=== PATIENT | female | born 1975 | race Caucasian/White ===

== ENCOUNTER 2021-09-17 18:14 | Emergency (ER) | payer BC ==
[~2021-09-17] VITALS: Ht 162.6 cm; Wt 103.9 kg
[2021-09-17 18:15] VITALS: BP 179/79
[2021-09-17] MEDS ORDERED: SERT-141 PO (18:59)
[2021-09-17] MEDS ORDERED: CETI10CA2 PO (18:59)
[2021-09-17] MEDS ORDERED: LABE100T4 PO (18:59)
[2021-09-17] MEDS ORDERED: ROPI5TAB3 PO (18:59)
[2021-09-17] MEDS ORDERED: DOXY-350 PO (18:59)
[2021-09-17 21:45] LABS: BASO # 0.1 10^3/uL (0.0-0.2); BASO % 0.5 % (0.0-1.0); EOS # 0.2 10^3/uL (0.0-0.5); HEMOGLOBIN 9.7 g/dl (12.0-15.5); LYMPH # 2.1 10^3/uL (1.5-5.0); MEAN CORPUSCULAR HEMOGLOBIN 19.7 pg (27.0-33.0); MEAN CORPUSCULAR HGB CONC 29.4 g/dl (32.0-36.5); MEAN CORPUSCULAR VOLUME 67.1 fl (80.0-96.0); MONO # 0.4 10^3/uL (0.0-0.8); MONO % 4.1 % (2.0-8.0); NEUTROPHILS # 7.8 10^3/uL (1.5-8.5); NEUTROPHILS % 72.7 % (36.0-66.0); PLATELET COUNT, AUTOMATED 379 10^3/uL (150-450); RED BLOOD COUNT 4.92 10^6/uL (4.00-5.40); WHITE BLOOD COUNT 10.7 10^3/uL (4.0-10.0)
[2021-09-17 22:07] LABS: ALBUMIN 3.5 GM/DL (3.2-5.2); BILIRUBIN,DIRECT 0.1 MG/DL (0.0-0.2); BILIRUBIN,TOTAL 0.2 MG/DL (0.2-1.0); C REACTIVE PROTEIN QUANTITATIV 1.89 MG/DL (0.00-0.30); TOTAL PROTEIN 7.5 GM/DL (6.4-8.2)
[2021-09-17 22:14] LABS: ERYTHROCYTE SEDIMENTATION RATE 60 mm/hr (0-20)
[2021-09-17] MEDS ORDERED: DOXYCYCLINE HYCLATE 100 MG in D5W MINI-BAG PLUS 100 ML IV ONE (23:15)
[2021-09-18] MEDS ORDERED: CALA1LOT9 EX (00:36)
[2021-09-18] MEDS ORDERED: DOXY-443 PO (00:36)
[2021-09-18] MEDS ORDERED: FERR325T3 PO (01:35)
== END 2021-09-18 01:17 | disposition home or self-care (01) ==
LOC: M ED 18:14
DX: L03.114 Cellulitis of left upper limb (principal); L25.9 Unspecified contact dermatitis, unspecified cause; D64.9 Anemia, unspecified; I10 Essential (primary) hypertension; K58.9 Irritable bowel syndrome, unspecified; Z79.899 Other long term (current) drug therapy; Z88.1 Allergy status to other antibiotic agents; Z88.2 Allergy status to sulfonamides; Z88.8 Allergy status to other drugs, medicaments and biological substances

== ENCOUNTER → 2021-12-16 | Outpatient (REF) | payer BC ==
[~2021-12-16] MED LIST: CALA1LOT9 EX; CETI10CA2 PO; DOXY-350 PO; DOXY-443 PO; FERR325T3 PO; LABE100T6 PO; ROPI5TAB3 PO; SERT-141 PO
== END ==
LOC: M PLALAB 13:56
PROVIDERS: ATTEND Nurse Practitioner Family
DX: Z12.4 Encounter for screening for malignant neoplasm of cervix (principal); R87.618 Other abnormal cytological findings on specimens from cervix uteri

== ENCOUNTER → 2022-03-12 | Outpatient (REF) | payer BC ==
[~2022-03-12] MED LIST changes: -DOXY-350 PO; +DOXY-444 PO
== END ==
LOC: M PLALAB 09:21
PROVIDERS: ATTEND Nurse Practitioner Family
DX: N39.0 Urinary tract infection, site not specified (principal)

== ENCOUNTER → 2022-03-13 | Day surgery (SDC) | payer BC ==
[~2022-03-13] VITALS: Ht 152.4 cm; Wt 109.7 kg
[~2022-03-13] MED LIST changes: +HYDROMORPHONE HCL 0.5 MG/ 0.5 ML SYRINGE IV PRN; +ISOVUE-300 61% 50ML VIAL As Ordered ONE; +KETOROLAC 30 MG/ML 1ML VIAL IV ONE; +LIDOCAINE 2% 100MG/5ML SDV (FOR ANES.) As Ordered ONE; +LR 1,000 ML IV SCH; +METOCLOPRAMIDE INJ 10MG/2ML VIAL As Ordered ONE; +MIDAZOLAM INJ 2MG/2ML VIAL As Ordered ONE; +NS 1,000 ML IV SCH; +ONDANSETRON 4MG 2ML VIAL As Ordered ONE; +ONDANSETRON 4MG 2ML VIAL IV ONE; +ONDANSETRON 4MG 2ML VIAL IV PRN; +ROCURONIUM BROMIDE 50MG/5ML VIAL As Ordered ONE; +SUGAMMADEX SODIUM 500 MG/5 ML VIAL (BRIDION) As Ordered ONE; +TAMSULOSIN 0.4 MG CAP PO ONE; +cefTRIAXone SOD 1GM VIAL As Ordered ONE; +fentaNYL 100 MCG/2 ML INJECTION As Ordered ONE; +oxyCODONE 5MG TAB PO PRN; +propofoL 200 MG/20 ML VIAL As Ordered ONE
[2022-03-13 10:26] LABS: URINE PREG TEST NEGATIVE (NEGATIVE)
[2022-03-13 11:35] LABS: BASO % 0.3 % (0.0-1.0); EOS # 0.1 10^3/uL (0.0-0.5); EOS % 1.4 % (0.0-3.0); HEMATOCRIT 38.5 % (36.0-47.0); HEMOGLOBIN 11.8 g/dl (12.0-15.5); LYMPH # 2.2 10^3/uL (1.5-5.0); LYMPH % 24.1 % (24.0-44.0); MEAN CORPUSCULAR HEMOGLOBIN 22.6 pg (27.0-33.0); MEAN CORPUSCULAR HGB CONC 30.6 g/dl (32.0-36.5); MEAN CORPUSCULAR VOLUME 73.8 fl (80.0-96.0); MONO # 0.6 10^3/uL (0.0-0.8); NEUTROPHILS # 6.3 10^3/uL (1.5-8.5); NEUTROPHILS % 67.8 % (36.0-66.0); PLATELET COUNT, AUTOMATED 305 10^3/uL (150-450); RED BLOOD COUNT 5.22 10^6/uL (4.00-5.40); WHITE BLOOD COUNT 9.3 10^3/uL (4.0-10.0)
[2022-03-13 12:02] LABS: LIPASE 33 U/L (12-53)
[2022-03-13 12:03] LABS: ALBUMIN 3.5 G/DL (3.2-5.2); ALKALINE PHOSPHATASE 67 U/L (46-116); ALT/SGPT 27 U/L (7.0-40); AST/SGOT 24 U/L (<34); BILIRUBIN,DIRECT < 0.1 MG/DL (<0.4); BILIRUBIN,TOTAL 0.3 MG/DL (0.3-1.2); BLOOD UREA NITROGEN 13 MG/DL (9-23); CALCIUM LEVEL 9.6 MG/DL (8.5-10.1); CARBON DIOXIDE LEVEL 26 MMOL/L (20-31); CHLORIDE LEVEL 105 MMOL/L (98-107); CREATININE FOR GFR 0.63 MG/DL (0.55-1.30); GLOMERULAR FILTRATION RATE > 60.0 (>58); GLUCOSE, FASTING 95 MG/DL (60-100); POTASSIUM SERUM 3.9 MMOL/L (3.5-5.1); SODIUM LEVEL 139 MMOL/L (136-145); TOTAL PROTEIN 7.3 G/DL (5.7-8.2)
[2022-03-13 12:38] LABS: RSV AMPLIFICATION NEGATIVE (NEGATIVE)
[2022-03-13 13:26] LABS: HCG, SERUM QUALITATIVE NEGATIVE (NEGATIVE)
[2022-03-13 17:53] VITALS: BP_DIAS 55
[2022-03-13 18:08] VITALS: BP_SYST 105
== END | disposition home or self-care (01) ==
LOC: M ED 10:03 → M SDC 10:04
PROVIDERS: ATTEND Urology
DX: N20.1 Calculus of ureter (principal); N13.30 Unspecified hydronephrosis; K42.9 Umbilical hernia without obstruction or gangrene; I10 Essential (primary) hypertension; K58.9 Irritable bowel syndrome, unspecified; Z97.5 Presence of (intrauterine) contraceptive device; F32.A Depression, unspecified; Z88.2 Allergy status to sulfonamides; Z88.8 Allergy status to other drugs, medicaments and biological substances; Z79.899 Other long term (current) drug therapy; Z79.2 Long term (current) use of antibiotics; Z87.442 Personal history of urinary calculi
CPT/HCPCS: 52332; 74176; 74420; 80048; 80076; 81000; 81015; 83690; 84702; 84703; 85025; 87086; 87631; 96374; 96375; 96376; 99284; C2617; J1100; J2405

== ENCOUNTER → 2022-03-29 | Outpatient (CLI) | payer BC ==
[~2022-03-29] MED LIST changes: +AMLO1TAB25 PO; +BISO5TAB14 PO; +FLOM0.4C39 PO; +HYDR12CA PO; -HYDROMORPHONE HCL 0.5 MG/ 0.5 ML SYRINGE IV PRN; -ISOVUE-300 61% 50ML VIAL As Ordered ONE; +KETO10TAB PO; -KETOROLAC 30 MG/ML 1ML VIAL IV ONE; -LIDOCAINE 2% 100MG/5ML SDV (FOR ANES.) As Ordered ONE; +LOSA100T45 PO; -LR 1,000 ML IV SCH; -METOCLOPRAMIDE INJ 10MG/2ML VIAL As Ordered ONE; -MIDAZOLAM INJ 2MG/2ML VIAL As Ordered ONE; -NS 1,000 ML IV SCH; +ONDA4TAB6 PO; -ONDANSETRON 4MG 2ML VIAL As Ordered ONE; -ONDANSETRON 4MG 2ML VIAL IV ONE; -ONDANSETRON 4MG 2ML VIAL IV PRN; +OXYB5TAB10 PO; -ROCURONIUM BROMIDE 50MG/5ML VIAL As Ordered ONE; +SERT50TA29 PO; -SUGAMMADEX SODIUM 500 MG/5 ML VIAL (BRIDION) As Ordered ONE; -TAMSULOSIN 0.4 MG CAP PO ONE; -cefTRIAXone SOD 1GM VIAL As Ordered ONE; -fentaNYL 100 MCG/2 ML INJECTION As Ordered ONE; -oxyCODONE 5MG TAB PO PRN; -propofoL 200 MG/20 ML VIAL As Ordered ONE
== END ==
LOC: M LABSMTC 09:13
PROVIDERS: ATTEND Anesthesiology
DX: Z01.812 Encounter for preprocedural laboratory examination (principal); Z11.52 Encounter for screening for COVID-19

== ENCOUNTER → 2022-03-29 | Outpatient (CLI) | payer BC | LOC: M RAD 09:41 | PROVIDERS: ATTEND Physician Assistant | DX: Z01.818 Encounter for other preprocedural examination (principal); Z79.899 Other long term (current) drug therapy ==

== ENCOUNTER 2022-03-31 07:19 | Day surgery (SDC) | payer BC ==
[~2022-03-31] VITALS: Ht 152.4 cm; Wt 108.9 kg
[~2022-03-31 07:19] MED LIST changes: +ISOVUE-M 300 61% 15ML VIAL As Ordered ONE; +ceFAZolin SOD 2 GM in IV 1 EA IV ONE
[2022-03-31] MEDS ORDERED: propofoL 200 MG/20 ML VIAL As Ordered ONE (08:08)
[2022-03-31] MEDS ORDERED: ONDANSETRON 4MG 2ML VIAL As Ordered ONE (08:08)
[2022-03-31] MEDS ORDERED: LIDOCAINE 2% 100MG/5ML SDV (FOR ANES.) As Ordered ONE (08:08)
[2022-03-31] MEDS ORDERED: MIDAZOLAM INJ 2MG/2ML VIAL As Ordered ONE (08:12)
[2022-03-31] MEDS ORDERED: fentaNYL 100 MCG/2 ML INJECTION As Ordered ONE (08:13)
[2022-03-31] MEDS ORDERED: LR 1,000 ML IV SCH ×2 (08:35→10:05)
[2022-03-31] MEDS ORDERED: ACETAMINOPHEN 1000MG 100ML IV BAG As Ordered ONE (09:23)
[2022-03-31] MEDS ORDERED: ePHEDrine SULFATE 25 MG/5 ML(5MG/ML) SYRINGE As Ordered ONE (09:26)
[2022-03-31] MEDS ORDERED: ONDANSETRON 4MG 2ML VIAL IV PRN (10:05)
[2022-03-31] MEDS ORDERED: oxyCODONE 5MG TAB PO PRN (10:05)
[2022-03-31] MEDS ORDERED: fentaNYL 100 MCG/2 ML INJECTION IV PRN (10:05)
[2022-03-31] MEDS ORDERED: PERCOCET 5MG/325MG TAB PO PRN (10:35)
[2022-03-31] MEDS ORDERED: oxyBUTYnin 5 MG TAB PO PRN (10:35)
[2022-03-31] MEDS ORDERED: KETOROLAC 30 MG/ML 1ML VIAL IV ONE ×2 (11:10→11:15)
[2022-03-31 12:25] VITALS: BP 121/60
[2022-04-03 14:08] LABS: CA Oxalate Dihy 60 % (.); Ca Ox Monohydrate 35 % (.); Size 2x6 mm (.)
== END 2022-03-31 12:55 | disposition home or self-care (01) ==
LOC: M SDC 07:19
PROVIDERS: ATTEND Urology
DX: N20.1 Calculus of ureter (principal); N13.30 Unspecified hydronephrosis; I10 Essential (primary) hypertension; E78.00 Pure hypercholesterolemia, unspecified; F32.A Depression, unspecified; Z87.442 Personal history of urinary calculi; Z79.899 Other long term (current) drug therapy; Z88.8 Allergy status to other drugs, medicaments and biological substances; Z88.2 Allergy status to sulfonamides
CPT/HCPCS: 52332; 52352; 74420; 82365; C1769; C1894; C2617; J0131; J0690; J1885; J2250; J2405; J3010

== ENCOUNTER → 2023-01-04 | Outpatient (CLI) | payer BC ==
[~2023-01-04] MED LIST changes: -ISOVUE-M 300 61% 15ML VIAL As Ordered ONE; -LOSA100T45 PO; +LOSA100T46 PO; -OXYB5TAB10 PO; +OXYB5TAB11 PO; +ROPI5TAB23 PO; -ROPI5TAB3 PO; -ceFAZolin SOD 2 GM in IV 1 EA IV ONE
== END ==
LOC: M RAD 08:10
PROVIDERS: ATTEND Urology
DX: N20.0 Calculus of kidney (principal); R93.41 Abnormal radiologic findings on diagnostic imaging of renal pelvis, ureter, or bladder

== ENCOUNTER → 2023-01-10 | Outpatient (CLI) | payer BC | LOC: M PLAIMG 13:23 | PROVIDERS: ATTEND Physician Assistant | DX: N20.0 Calculus of kidney (principal) ==

== ENCOUNTER → 2024-10-02 | Outpatient (REF) | payer BC ==
[~2024-10-02] MED LIST changes: +DOXY-440 PO; +DOXY-441 PO; -DOXY-443 PO; -DOXY-444 PO; -FLOM0.4C39 PO; +HYDR12.510 PO; -HYDR12CA PO; +ONDA-282 PO; -ONDA4TAB6 PO; -OXYB5TAB11 PO; +OXYB5TAB14 PO; +TAMS-18 PO
[2024-10-04 14:22] LABS: HPV APTIMA Not Detected (Not Detected)
== END ==
LOC: M SFHCWAGY 16:49
PROVIDERS: ATTEND Advanced Practice Midwife
DX: Z12.4 Encounter for screening for malignant neoplasm of cervix (principal)

== ENCOUNTER → 2024-11-05 | Outpatient (CLI) | payer BC ==
[2024-11-05 18:12] LABS: APPEARANCE, URINE CLEAR (CLEAR); BACTERIA, URINE AUTO NEGATIVE (NEGATIVE); BILIRUBIN, URINE AUTO NEGATIVE (NEGATIVE); BLOOD, URINE BLOOD 2+ (NEGATIVE); GLUCOSE, URINE (UA) AUTO NEGATIVE (NEGATIVE); KETONE, URINE AUTO NEGATIVE (NEGATIVE); LEUKOCYTE ESTERASE, URINE AUTO NEGATIVE (NEGATIVE); NITRITE, URINE AUTO NEGATIVE (NEGATIVE); PROTEIN, URINE AUTO NEGATIVE (NEGATIVE); RBC, URINE AUTO 3 /HPF (0-3); SPECIFIC GRAVITY URINE AUTO 1.010 (1.002-1.035); SQUAMOUS EPITHELIAL CELL UR AU 0 /HPF (0-6); UROBILINOGEN, URINE AUTO 0.2 mg/dL (0.0-2.0); WBC, URINE AUTO 0 /HPF (0-3)
== END ==
LOC: M WUC 14:58
PROVIDERS: ATTEND Physician Assistant
DX: N23 Unspecified renal colic (principal)

== ENCOUNTER → 2024-11-22 | Outpatient (CLI) | payer BC | LOC: M RAD 09:34 | PROVIDERS: ATTEND Physician Assistant | DX: N23 Unspecified renal colic (principal); K76.0 Fatty (change of) liver, not elsewhere classified; N20.1 Calculus of ureter ==

== ENCOUNTER → 2024-12-06 | Outpatient (CLI) | payer BC ==
[2024-12-06 15:15] LABS: BASO # 0.0 10^3/uL (0.0-0.2); BASO % 0.4 % (0.0-1.0); EOS # 0.2 10^3/uL (0.0-0.5); EOS % 2.4 % (0.0-3.0); LYMPH # 2.5 10^3/uL (1.5-5.0); LYMPH % 25.9 % (24.0-44.0); MONO # 0.6 10^3/uL (0.0-0.8); MONO % 6.0 % (2.0-8.0); NEUTROPHILS # 6.3 10^3/uL (1.5-8.5); NEUTROPHILS % 65.0 % (36.0-66.0); PLATELET COUNT, AUTOMATED 309 10^3/uL (150-450)
[2024-12-06 15:21] LABS: ALT/SGPT 42 U/L (7.0-40); AST/SGOT 25 U/L (<34); CALCIUM LEVEL 9.3 MG/DL (8.5-10.1); CARBON DIOXIDE LEVEL 30 MMOL/L (20-31); CHLORIDE LEVEL 105 MMOL/L (98-107); CHOLESTEROL LEVEL 197 MG/DL (<200); CHOLESTEROL RISK RATIO 4.80 (<5); CREATININE FOR GFR 0.71 MG/DL (0.55-1.30); GLOMERULAR FILTRATION RATE > 90.0 (>51); LDL CHOLESTEROL 115.8 MG/DL (<100); NON-HDL-C 156.0 MG/DL; POTASSIUM SERUM 4.3 MMOL/L (3.5-5.1); SODIUM LEVEL 145 MMOL/L (136-145); TRIGLYCERIDES LEVEL 201 MG/DL (<150)
[2024-12-06 16:06] LABS: ESTIMATED AVERAGE GLUCOSE 120.0 MG/DL (60-110)
== END ==
LOC: M WUC 08:43
PROVIDERS: ATTEND Student in an Organized Health Care Education/Training Program
DX: E78.2 Mixed hyperlipidemia (principal); R73.01 Impaired fasting glucose